=== PATIENT | female | born 1970 | race Caucasian/White ===

== ENCOUNTER 2020-07-30 12:33 | Outpatient (CLI) | payer OTHER, SELFPAY ==
--- NOTE | 2020-07-30 12:48 | MR_ITS ---
WS: [id number] Exam: MR shoulder RT wo/w con [id number] Date/Time of Exam: 07/30/2020 12:49 PM Reason For Exam: RIGHT SHOULDER PAIN S/P INJURY The right shoulder is evaluated in the axial, coronal and sagittal planes with multiple imaging seque nces both before and following uneventful intra-articular administration of gadolinium. The tendons of the rotator cuff are intact. The long head biceps tendon is seated in the bicipital gr oove. The biceps anchor is intact. No sign of labral tear. There is arthrosis and inflammation at the AC joint. There may be mild impingement at the musculotendinous junction of the supraspinatus muscle . Remaining osseous structures demonstrate normal bone marrow signal. MR/MR shoulder RT wo/w con [id number] IMPRESSION: 1. The rotator cuff is intact. 2. No sign of labral tear. 3. Arthrosis and inflammation at the AC joint. There may be mild impingement ho wever this should be correlated with clinical symptomatology.
--- NOTE | 2020-07-30 12:52 | IR_ITS ---
WS: [id number] Exam: IR arthrogram shoulderRT [id number] Date/Time of Exam: 07/30/2020 12:53 PM Reason For Exam: RIGHT SHOULDER PAIN The procedure and potential complications were explained to the patient in detail. Written consent wa s obtained. The right shoulder was prepped and draped in a sterile fashion. Soft tissues are anesthetized with se veral cc of 1% Xylocaine. A 22-gauge spinal needle was placed into the glenohumeral joint under fluor oscopic visualization. Several cc of nonionic contrast were injected to confirm needle position in th e joint compartment. 13 cc of a solution consisting of the 0.5 mL of gadolinium mixed with 100 mL of sterile saline were injected into the glenohumeral joint. The patient tolerated the injection procedu re without incident.
[2020-07-30] MEDS: iohexol 240 mg/mL 50 mL Btl INTRA-ARTI (14:06)
== END 2020-07-30 12:34 | disposition home or self-care (01) ==
LOC: RADWPI 12:41
PROVIDERS: PCP Family Medicine; Visit Provider Orthopaedic Surgery Sports Medicine
DX: M19.011 Primary osteoarthritis, right shoulder (principal)
CPT/HCPCS: 23350; 73223; 77002; Q9966

== ENCOUNTER 2023-08-17 08:27 | Emergency (ER) | payer BC, SELFPAY ==
[2023-08-17 08:35] VITALS: BP 129/91; PULSE 88; RESP 18; TEMP 36.6; O2SAT 98; BMI 23.3
--- NOTE | 2023-08-17 08:52 | XR_ITS ---
WS: [id number] Exam: XR chest 1V portable [id number] Date/Time of Exam: 08/17/2023 8:53 AM Reason For Exam: dyspnea/cough No priors. The lungs are fully inflated and clear. Normal cardiomediastinal silhouette and regional bony element s. No pleural effusions. IMPRESSION: 1. Negative chest.
--- NOTE | 2023-08-17 09:00 | W.ED.WEAKNES ---
HPI - Weakness General: Chief complaint: Weakness Stated complaint: dizziness, sweating Time Seen by Provider: 08/17/23 08:28 Source: patient Mode of arrival: ambulatory History of Present Illness: 52-year-old female comes in complaining of weakness mild shortness of breath and cough generalized aches and pain. She has chronic hip knee pain its gotten significantly worse last few days. She also noticed cramping in her legs that wakes her up at night and she tried drinking more fluids but is not necessarily helped. She has not had any diarrhea. MD Complaint: generalized weakness Onset (ago): minute(s) Location: generalized Relieving factors: none Exacerbating factors: none Associated symptoms: Reports chills, decreased appetite and myalgias; Denies chest pain, confusion, melena, diaphoresis, dysuria, easy bruising, fever(s), headache(s), nausea, rash, short of breath, syncope or vomiting Review of Systems Const: Reports: chills and malaise; Denies: fever(s) or diaphoresis Card: Denies: chest pain or syncope Resp: Reports: dyspnea and non-productive cough GI: Denies: nausea, vomiting or melena : Denies: dysuria Musc: Reports: extremity pain; Denies: neck pain or back pain Skin/Breast: Denies: rash Neuro: Denies: headache(s) or confusion Chris/Lymph: Denies: easy bruising PFSH ED PFSH: Medical History Lumbago with sciatica Headache after cough Tick bite of elbow Social History Smoking and tobacco/nicotine status: never used tobacco/nicotine Second hand smoke exposure: No Alcohol intake: never Substance/Drug Use: never Lives independently: Yes Physical Exam Const: COMMON NORMALS: no acute distress GENERAL APPEARANCE: cooperative and comfortable ORIENTATION/CONSCIOUSNESS: Yes awake, Yes oriented to person, Yes oriented to place and Yes oriented to time HENMT: COMMON NORMALS: normocephalic, atraumatic and hearing grossly normal bilaterally HEAD & SCALP: normocephalic and atraumatic Resp: COMMON NORMALS: normal respiratory effort, No retractions, No use of accessory muscles and clear to auscultation bilaterally AUSCULTATION: clear to auscultation bilaterally Cardio: COMMON NORMALS: regular rate, regular rhythm and No murmurs present (Cardio) RATE: regular rate RHYTHM: regular rhythm GI: COMMON NORMALS: Soft to palpation and No hepatosplenomegaly present AUSCULTATION: Yes normoactive bowel sounds PALPATION: Yes Soft to palpation, No Tenderness to palpation present (GI), No Guarding due to palpation present (GI) and Yes No hepatosplenomegaly present Extremity: COMMON NORMALS: normal to inspection, capillary refill normal, no clubbing, cyanosis or edema, no calf tenderness and no pedal edema Neuro: SENSORIUM/ORIENTATION: Yes oriented to person, Yes oriented to place and Yes oriented to time Skin: COMMON NORMALS: no rashes or lesions noted GENERAL SKIN EXAM: no rashes or lesions noted Course Vital Signs: Vital signs: Vital Signs Temperature 97.8 F 08/17/23 08:35 Pulse Rate 71 08/17/23 12:31 Respiratory Rate 18 08/17/23 08:35 Blood Pressure 131/89 08/17/23 12:31 Pulse Oximetry 96 08/17/23 12:31 Oxygen Delivery Me thod Room Air 08/17/23 12:31 MDM - Weakness Medical Decision Making Chest x-ray was negative patient does have COVID. I think that is the cause of her increased joint ache and pain. Give her some Celebrex also give her ropinirole to trial for nighttime leg cramping. Incidental finding of hematuria today which we did a CT for shows a right renal mass that should be worked up with an MRI as an outpatient discussed with the patient and encouraged her to follow-up with her primary care doctor. Medical Records I reviewed the patient's medical records. Lab Data I reviewed the patient's lab results. 08/17/23 09:24 08/17/23 09:24 Laboratory Results WBC 6.57 10^3/uL (3.29-11.43) 08/17/23 09:24 RBC 4.48 10^6/uL (3.85-5.65) 08/17/23 09:24 Hgb 13.60 g/dL (11.27-16.99) 08/17/23 09:24 Hct 41.6 % (36-47) 08/17/23 09:24 MCV 92.9 fl (85-98) 08/17/23 09:24 MCH 30.4 pg (27-33) 08/17/23 09:24 MCHC 32.7 g/dL (30-55) 08/17/23 09:24 RDW 12.9 % (12.1-15.1) 08/17/23 09:24 Plt Count 193 10^3/cmm (157-399) 08/17/23 09:24 MPV 9.8 fL (7.4-10.4) 08/17/23 09:24 Neut % (Auto) 65.1 % 08/17/23 09:24 Lymph % (Auto) 22.8 % 08/17/23 09:24 [place] % (Auto) 11.1 % 08/17/23 09:24 Eos % (Auto) 0.2 % 08/17/23 09:24 Baso % (Auto) 0.5 % 08/17/23 09:24 Neut # (Auto) 4.28 10^3/uL (1.8-7.7) 08/17/23 09:24 Lymph # (Auto) 1.5 10^3/uL (0.8-4.8) 08/17/23 09:24 [place] # (Auto) 0.7 10^3/uL (0.2-0.9) 08/17/23 09:24 Eos # (Auto) 0.0 10^3/uL (0.0-0.8) 08/17/23 09:24 Baso # (Auto) 0.0 10^3/uL (0.0-0.1) 08/17/23 09:24 Nucleated RBC % (auto) 0 % 08/17/23 09:24 Nucleated RBCs # 0.0 /100WBC 08/17/23 09:24 Sodium 135 mmol/L (136-145) L 08/17/23 09:24 Potassium 3.7 mmol/L (3.5-5.1) 08/17/23 09:24 Chloride 103 mmol/L (98-107) 08/17/23 09:24 Carbon Dioxide 21 mmol/L (22-29) L 08/17/23 09:24 Anion Gap 14.7 (5-19) 08/17/23 09:24 BUN 11 mg/dL (6-20) 08/17/23 09:24 Creatinine 0.8 mg/dL (0.5-0.9) 08/17/23 09:24 GFR Calculation 74.7 mL/min (90-130) L 08/17/23 09:24 Glucose 138 mg/dL (65-115) H 08/17/23 09:24 Calculated Osmolality 282 mOsm/kg (285-295) L 08/17/23 09:24 Lactic Acid 1.5 mmol/L (0.5-2.2) 08/17/23 09:24 Calcium 8.9 mg/dL (8.5-10.5) 08/17/23 09:24 Total Bilirubin 0.2 mg/dL (0.15-1.2) 08/17/23 09:24 AST 18 U/L (0-32) 08/17/23 09:24 ALT 10 U/L (0-33) 08/17/23 09:24 Alkaline Phosphatase 73 U/L (35-105) 08/17/23 09:24 Total Protein 6.8 g/dL (6.6-8.7) 08/17/23 09:24 Albumin 3.7 g/dL (3.5-5.2) 08/17/23 09:24 Globulin 3.1 g/dL (1.3-4.6) 08/17/23 09:24 Urine Color Dark yellow (Yellow) 08/17/23 10:03 Urine Appearance Clear (CLEAR) 08/17/23 10:03 Urine pH 5 (5-7) 08/17/23 10:03 Ur Specific Ira 1.020 (1.005-1.030) 08/17/23 10:03 Urine Protein Neg (Negative) 08/17/23 10:03 Urine Glucose (UA) Norm (Normal) 08/17/23 10:03 Urine Ketones Negative (Negative) 08/17/23 10:03 Urine Blood 3+ (Negative) H 08/17/23 10:03 Urine Nitrate Negative (Negative) 08/17/23 10:03 Urine Bilirubin Neg (Negative) 08/17/23 10:03 Urine Urobilinogen Norm mg/dL (Negative) 08/17/23 10:03 Ur Leukocyte Esterase Negative (Negative) 08/17/23 10:03 Urine RBC 5-10 /hpf (0-2) H 08/17/23 10:03 Urine WBC 0-4 /hpf (0-5) H 08/17/23 10:03 Ur Squamous Epith Cells 0-4 /hpf (0-5) H 08/17/23 10:03 Amorphous Sediment Trace /hpf 08/17/23 10:03 Urine Bacteria 1+ /hpf (NONE) H 08/17/23 10:03 Hyaline Casts 15-25 /lpf H 08/17/23 10:03 Fine Granular Casts 0-4 /lpf H 08/17/23 10:03 Urine Mucus 2+ /hpf 08/17/23 10:03 Coronavirus 229E (PCR) Not detected (NOT DETECT) 08/17/23 09:04 Influenza Type A Ag negative (Negative) 08/17/23 09:04 Influenza Type B Ag negative (Negative) 08/17/23 09:04 SARS-CoV-2 (PCR) Detected (NOT DETECT) A 08/17/23 09:04 All radiology interpretation(s) finalized by discharge Discharge Plan Discharge Patient Disposition: Home Clinical Impression: COVID-19, Lumbago with sciatica, Mass of right kidney Condition: Stable Prescriptions: New Paxlovid 300 mg (150 mg x 2)-100 mg tablets,dose pack See Rx Instructions .ROUTE .COMPLEX Qty: 30 0RF Rx Instructions: orally per package directions Celebrex 200 mg capsule 200 mg PO BID Qty: 30 0RF ropinirole 0.5 mg tablet 0.5 mg PO .qhs Qty: 30 0RF No Action alprazolam 0.25 mg tablet 0.25 mg PO TID PRN (Reason: anxiety) Qty: 90 5RF cyclobenzaprine 10 mg tablet 10 mg PO TID PRN (Reason: muscle spasm) Qty: 60 1RF Discharge Orders: Discharge ED (Routine); Ordered 08/17/23 Ordered By: Presley Valiente Referrals: Severino Rosales, [Primary Care Provider] - Discharge Diet: Usual diet Discharge Activity: Increase activity as tolerated Patient Instructions: Opioid Safety, Pain Management Activity Restrictions/Additional Instructions: Thank you for choosing [facility] for your healthcare needs today. Please realize this is an emergency room and that we are providing you with a medical screening exam and this may not be complete and all inclusive of all the testing and or work up that you may need to determine your ailment or severity of your illness. It is very important that you follow up as instructed or that you return to the Emergency Department should you have concerns or if your condition changes or worsens in any way. You were seen today with complaints of generalized aches and pains. This is likely coming from COVID-19 which she tested positive for. Your chest x-ray looked okay. You did have a small amount of blood in your urine however no CT showed a right renal mass you will need further evaluation of this case management make arrangements for an MRI as an outpatient. He should follow-up with Dr. Acosta concerning this. We gave you prescription for Paxlovid to take 1 twice a day for 5 days this will suppress the COVID but will not completely cure it. I also gave you Celebrex to use 1 pill twice daily as needed for aches and pains this is generally relatively easy on the stomach. I also gave you ropinirole to use at night for leg cramping. 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
[2023-08-17 09:35] LABS: Basophils % 0.5 %; Eosinophils % 0.2 %; Hematocrit 41.6 % (36-47); Lymphocytes # 1.5 10^3/uL (0.8-4.8); Lymphocytes % 22.8 %; Mean Corpuscular HGB Conc 32.7 g/dL (30-55); Mean Corpuscular Hemoglobin 30.4 pg (27-33); Mean Corpuscular Volume 92.9 fl (85-98); Mean Platelet Volume 9.8 fL (7.4-10.4); Monocytes # 0.7 10^3/uL (0.2-0.9); Monocytes % 11.1 %; Neutrophils # 4.28 10^3/uL (1.8-7.7); Neutrophils % 65.1 %; Nucleated Red Blood Cells % 0 %; Platelet Count 193 10^3/cmm (157-399); Red Blood Count 4.48 10^6/uL (3.85-5.65); Red Cell Distribution Width 12.9 % (12.1-15.1); White Blood Count 6.57 10^3/uL (3.29-11.43)
[2023-08-17 09:48] LABS: Lactic Sepsis W/Reflex 1.5 mmol/L (0.5-2.2)
[2023-08-17 09:49] LABS: Alanine Aminotransferase 10 U/L (0-33); Albumin Level 3.7 g/dL (3.5-5.2); Alkaline Phosphatase 73 U/L (35-105); Anion Gap 14.7 (5-19); Aspartate Amino Transferase 18 U/L (0-32); Blood Urea Nitrogen 11 mg/dL (6-20); Calcium 8.9 mg/dL (8.5-10.5); Carbon Dioxide 21 mmol/L (22-29); Chloride 103 mmol/L (98-107); Globulin 3.1 g/dL (1.3-4.6); Glomerular Filtration Rate 74.7 mL/min (90-130); Glucose 138 mg/dL (65-115); Osmolality Calculated 282 mOsm/kg (285-295); Potassium 3.7 mmol/L (3.5-5.1); Sodium 135 mmol/L (136-145); Total Bilirubin 0.2 mg/dL (0.15-1.2); Total Protein 6.8 g/dL (6.6-8.7)
[2023-08-17 10:16] LABS: Influenza A by IFA negative (Negative); Influenza B by IFA negative (Negative)
[2023-08-17 10:23] LABS: Bilirubin Urine Neg (Negative); Blood Urine 3+ (Negative); Glucose Urine UA Norm (Normal); Ketones Urine Negative (Negative); Leukocyte Esterase Urine Negative (Negative); Nitrate Urine Negative (Negative); Protein Urine Neg (Negative); Urine Appearance Clear (CLEAR); Urine Color Dark Yellow (Yellow); Urobilinogen Urine Norm (Negative); pH Urine 5 (5-7)
[2023-08-17 10:24] LABS: Add Urine Microscopic? YES
[2023-08-17 10:34] LABS: Add Urine Culture? No; Amorphous Sediment Urine TRACE /hpf; Bacteria Urine 1+ /hpf; Fine Granular Casts Urine 0-4 /lpf; Hyaline Casts Urine 15-25 /lpf; Mucus Urine 2+ /hpf; Squamous Epithelial Cell Urine 0-4 /hpf (0-5); WBC Urine 0-4 /hpf (0-5)
--- NOTE | 2023-08-17 10:56 | CT_ITS ---
WS: [id number] CT ABDOMEN AND PELVIS NONCONTRAST HISTORY: Abdominal pain TECHNIQUE: Imaging performed through the abdomen and pelvis. Coronal and sagittal reformats are submi tted. All CT scans at [facility] use at least one of these dose optimization techniques: auto mated exposure control; mA and/or kV adjustment per patient size (includes targeted exams where dose is matched to clinical indication); or iterative reconstruction. DLP: 359.86 mGy.cm COMPARISON: None available. Lower thorax: Mild dependent changes at the lung bases. Heart is normal size. Small hiatal hernia. Liver: Normal size liver. No mass or bile duct dilatation. Gallbladder: Normal gallbladder. No pericholecystic fluid or cholelithiasis. No gallbladder wall thic kening. Pancreas: Normal size and attenuation. Normal pancreatic duct. No pancreatitis or mass. Spleen: Normal size spleen with granulomata. Adrenal glands: Well-circumscribed low-attenuation mass RIGHT adrenal gland measures 2.9 x 2.3 cm. Ho unsfield units are slightly elevated. LEFT adrenal gland is negative. Right kidney: Normal size kidney with no mass or hydronephrosis. Left kidney: Normal size kidney with no mass or hydronephrosis. Aorta: Mild atherosclerosis abdominal aorta with no aneurysm. No free fluid, intraperitoneal air or significant lymphadenopathy. GI tract: Normal noncontrast imaging of the stomach, small bowel and colon. No obstruction or wall th ickening. Normal appendix. Abdominal wall: Negative. No hernia. Pelvis: Uterus and ovaries are normal position. No free fluid or adenopathy. Osseous structures: Unremarkable. IMPRESSION: 1. No renal obstruction or calcification. 2. Normal appendix. 3. No GI tract obstruction. 4. RIGHT adrenal mass. Hounsfield units are elevated. Cannot confirm adenoma. Consider outpatient re nal mass CT or MRI protocol.
[2023-08-17 11:44] LABS: Adenovirus Not Detected (NOT DETECT); Chlamydia Pneumoniae Not Detected (NOT DETECT); Coronavirus 229E,HKU1,NL63,OC4 Not Detected (NOT DETECT); Human Metapneumovirus Not Detected (NOT DETECT); Human Rhinovirus/Enterovirus Not Detected (NOT DETECT); Influenza A Not Detected (NOT DETECT); Influenza A H1 Not Detected (NOT DETECT); Influenza A H1-2009 Not Detected (NOT DETECT); Influenza A H3 Not Detected (NOT DETECT); Influenza B Not Detected (NOT DETECT); Mycoplasma Pneumoniae Not Detected (NOT DETECT); Parainfluenza Virus Type 1 Not Detected (NOT DETECT); Parainfluenza Virus Type 2 Not Detected (NOT DETECT); Parainfluenza Virus Type 3 Not Detected (NOT DETECT); Parainfluenza Virus Type 4 Not Detected (NOT DETECT); Respiratory Syncytial Virus A Not Detected (NOT DETECT); Respiratory Syncytial Virus B Not Detected (NOT DETECT)
[2023-08-17 11:58] LABS: SARS-COV-2 Detected (NOT DETECT)
[2023-08-17 12:31] VITALS: BP 131/89; PULSE 71; O2SAT 96
--- NOTE | 2023-08-24 08:38 | DCPLANNER ---
outpatient request sent to centralized scheduling 08/24/23 for a MRI abd [id number]
== END 2023-08-17 12:38 | disposition home or self-care (01) ==
PROVIDERS: Emergency Provider Family Medicine; PCP Family Medicine
DX: U07.1 COVID-19 (principal); M54.40 Lumbago with sciatica, unspecified side; N28.89 Other specified disorders of kidney and ureter
CPT/HCPCS: 36415; 71045; 74176; 80053; 81001; 83605; 85025; 87040; 87635; 87804; 99284

== ENCOUNTER → 2023-12-01 09:12 | Outpatient (BNVA) | payer BC, SELFPAY | PROVIDERS: PCP Family Medicine; Visit Provider Family Medicine | DX: Z00.00 Encounter for general adult medical examination without abnormal findings (principal); Z13.6 Encounter for screening for cardiovascular disorders | CPT/HCPCS: 80053; 80061 ==

== ENCOUNTER 2024-01-25 10:58 | Outpatient (CLI) | payer BC, SELFPAY ==
--- NOTE | 2024-01-25 11:06 | MR_ITS ---
WS: [id number] MRI ADRENAL GLANDS WITH AND WITHOUT CONTRAST. COMPARISON: CT 08/17/2023 Multiplanar, multisequence imaging is performed with and without contrast. MultiHance 13 mL IV. Reidentified is a mass involving the RIGHT adrenal gland that was described on a prior CT. Mass is he terogeneous measuring 2.5 x 2.0 cm. On the out of phase sequence there is partial loss of signal sugg esting there is a component of an adenoma. There is not a complete washout of signal. There is an are a of increased density in the more posterior RIGHT adrenal gland which does enhance. The lipid compon ent does not enhance. The posterior aspect of the RIGHT adrenal gland does enhance on the postcontras t imaging without significant washout. The enhancing component is 1.5 x 2.0 cm. The LEFT adrenal gland is normal. Liver is enlarged extending over a length of 18 cm. Normal portal v ein. Normal kidneys. Normal spleen. Visualized gallbladder is normal. Visualized pancreas is normal. MR/MR adrenals wo/w con [id number] IMPRESSION: 1. RIGHT adrenal mass is indeterminate. There are components of benign adenoma but is also an enhancing component in the RIGHT adrenal gland. Differential in cludes collision tumor, pheochromocytoma, metastasis and adrenal cortical carci noma and lipid poor adenoma. Due to the small size of the enhancing component r ecommend follow-up MRI adrenal gland protocol in 6 months. Stable size since . 2. Mild hepatomegaly.
[2024-01-25] MEDS: gadobenate dimeglumine 20 mL vial IV (11:48)
== END 2024-01-25 10:59 | disposition home or self-care (01) ==
PROVIDERS: PCP Family Medicine; Visit Provider Family Medicine
DX: E27.8 Other specified disorders of adrenal gland (principal)
CPT/HCPCS: 74183; A9577

== ENCOUNTER 2024-01-31 11:22 | Outpatient (CLI) | payer BC, SELFPAY ==
--- NOTE | 2024-01-31 11:24 | XR_ITS ---
WS: [id number] XR hip BI 3-4V wo/w pel [id number] REASON FOR EXAM: M19.90 - Unspecified osteoarthritis, unspecified site FINDINGS: RIGHT HIP: No acute fracture or focal bone lesion. Mild to moderate narrowing of the joint space. Mild subchondral sclerosis and osteophytosis of the acetabulum. Normal femoral head and neck. No soft tissue abnormality. LEFT HIP: No acute fracture or focal bone lesion. Mild to moderate narrowing of the joint space. Mild subchondral sclerosis and osteophytosis of the acetabulum. Normal femoral head-neck. No soft tissue abnormality. XR/XR hip BI 3-4V wo/w pel [id number] IMPRESSION: Symmetric mild to moderate osteoarthritis of the hip joints.
== END 2024-01-31 11:23 | disposition home or self-care (01) ==
LOC: RAD 11:23
PROVIDERS: PCP Family Medicine; Visit Provider Family Medicine
DX: M16.0 Bilateral primary osteoarthritis of hip (principal)
CPT/HCPCS: 73521; 73522

== ENCOUNTER 2024-02-15 09:57 | Outpatient (CLI) | payer BC, SELFPAY ==
--- NOTE | 2024-02-15 10:21 | XRR_ITS ---
PROCEDURE INFORMATION: Exam: XR Lumbosacral Spine Exam date and time: 02/15/2024 10:45 AM Age: 53 years old Clinical indication: Low back pain TECHNIQUE: Imaging protocol: Radiologic exam of the lumbosacral spine. Views: 2 or 3 views. COMPARISON: CR XR hip BI 3-4V wo/w pel [id number] 01/31/2024 11:48 AM FINDINGS: Bones/joints: Well maintained disc spaces. Mild marginal spurring L2 through L5.. No acute fracture. Normal alignment. Soft tissues: Unremarkable. XR/XR lumbar spine 2-3V* [id number] IMPRESSION: No acute findings.
--- NOTE | 2024-02-15 10:21 | XRR_ITS ---
PROCEDURE INFORMATION: Exam: XR Cervical Spine Exam date and time: 02/15/2024 10:45 AM Age: 53 years old Clinical indication: Neck pain; Additional info: Back pain TECHNIQUE: Imaging protocol: Radiologic exam of the cervical spine. Views: 2 or 3 views. COMPARISON: CR XR thoracic spine 2V [id number] 02/15/2024 10:45 AM FINDINGS: Bones/joints: Straightening of the normal cervical lordosis. Disc space narrowing and spurring C5 through C7. Minimal anterolisthesis of C4 on C5. Soft tissues: Unremarkable. XR/XR cervical spine 3V* [id number] IMPRESSION: No acute findings.
--- NOTE | 2024-02-15 10:21 | XRR_ITS ---
PROCEDURE INFORMATION: Exam: XR Thoracic Spine Exam date and time: 02/15/2024 10:45 AM Age: 53 years old Clinical indication: Pain in thoracic spine; Additional info: Back pain TECHNIQUE: Imaging protocol: Radiologic exam of the thoracic spine. Views: 3 views. COMPARISON: CR XR cervical spine 3V* [id number] 02/15/2024 10:45 AM FINDINGS: Bones/joints: Normal. No acute fracture. Normal alignment. Soft tissues: Unremarkable. XR/XR thoracic spine 2V [id number] IMPRESSION: No acute findings.
== END 2024-02-15 09:58 | disposition home or self-care (01) ==
PROVIDERS: PCP Family Medicine; Visit Provider Family Medicine
DX: M48.02 Spinal stenosis, cervical region (principal); M25.78 Osteophyte, vertebrae
CPT/HCPCS: 72040; 72070; 72100

== ENCOUNTER 2024-02-16 07:13 | Outpatient (CLI) | payer BC, SELFPAY ==
[2024-02-16 09:11] LABS: Cortisol Random 8.22 ug/dL (2.47-19.5)
== END 2024-02-16 07:14 | disposition home or self-care (01) ==
PROVIDERS: PCP Family Medicine; Visit Provider Nurse Practitioner Family
DX: E27.8 Other specified disorders of adrenal gland (principal)
CPT/HCPCS: 36415; 82533; 83835

== ENCOUNTER 2024-02-17 06:59 | Outpatient (CLI) | payer BC, SELFPAY ==
[2024-02-17 07:50] LABS: Cortisol Random 1.42 ug/dL (2.47-19.5)
== END 2024-02-17 07:00 | disposition home or self-care (01) ==
PROVIDERS: PCP Family Medicine; Visit Provider Nurse Practitioner Family
DX: E27.8 Other specified disorders of adrenal gland (principal)
CPT/HCPCS: 36415; 82533

== ENCOUNTER → 2024-02-23 14:39 | Outpatient (BNVA) | payer BC, SELFPAY | PROVIDERS: PCP Family Medicine; Visit Provider Family Medicine | DX: R31.9 Hematuria, unspecified (principal); M25.551 Pain in right hip; M19.90 Unspecified osteoarthritis, unspecified site; E27.8 Other specified disorders of adrenal gland; M62.838 Other muscle spasm | CPT/HCPCS: 81000 ==

== ENCOUNTER → 2024-04-03 10:15 | Outpatient (BNVA) | payer BC, SELFPAY | PROVIDERS: PCP Family Medicine; Visit Provider Student in an Organized Health Care Education/Training Program | DX: M25.551 Pain in right hip (principal); M70.61 Trochanteric bursitis, right hip | CPT/HCPCS: 73502 ==

== ENCOUNTER → 2024-07-19 14:37 | Outpatient (BNVA) | payer BC, SELFPAY | PROVIDERS: PCP Family Medicine; Visit Provider Orthopaedic Surgery | DX: M54.9 Dorsalgia, unspecified (principal); M25.551 Pain in right hip; M48.062 Spinal stenosis, lumbar region with neurogenic claudication | CPT/HCPCS: 72110 ==

== ENCOUNTER 2024-07-31 13:30 | Outpatient (CLI) | payer BC, SELFPAY ==
--- NOTE | 2024-07-31 13:45 | MR_ITS ---
WS: [id number] MRI LUMBAR SPINE NONCONTRAST TECHNIQUE: Sagittal T1, T2 and STIR imaging. Axial T1 and T2 imaging. CLINICAL INFORMATION: low back pain COMPARISON: None. FINDINGS: Mild lumbar curve. No acute compression. Disc bulging worse at L4-5 with a small annular tear. 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 Small central disc protrusion C5-6 with slight indentation of the cervical cord. This can be further evaluated cervical spine MRI. Suggestion of small amount of myelomalacia in the cervical cord. L1-L2: Mild facet arthropathy. Spinal canal and foramen are patent. L2-L3:Mild annular bulging with slight narrowing of the RIGHT subarticular recess. Slight effacement of the ventral thecal sac. Mild facet arthropathy. Mild LEFT foraminal narrowing. L3-L4: Mild annular bulging. Slight impingement on the RIGHT greater than LEFT subarticular recess. Mild facet arthropathy. Mild RIGHT foraminal narrowing. L4-L5: Annular bulging L4-5 with a shallow central protrusion with an annular fissure. Mild central c anal stenosis. Impingement traversing L5 nerve roots bilaterally. Foramen are patent. L5-S1: Mild annular bulging. Slight effacement of thecal sac. Slight impingement of traversing S1 ner ve roots bilaterally. Mild facet arthropathy. Foramen are patent. Visualized pelvic bony structures: Normal. Paravertebral soft tissues: Normal. Partially visualized splenomegaly. Liver measures 18.7 cm [id number] on the client resource specialist imaging. MR/MR lumbar spine wo con* [id number] IMPRESSION: 1. Mild lumbar curve. No acute compression. 2. Disc bulging worse at L4-5 with a shallow central protrusion and annular te ar. Mild central canal stenosis with impingement traversing L5 nerve roots bila terally. 3. Annular bulging L3-4 impinges the traversing RIGHT L4 nerve root. 4. Narrowing of the RIGHT L2-3 subarticular recess. 5. Mild annular bulge L5-S1 with slight contact of the traversing S1 nerve maria d ts LEFT greater than RIGHT. 6. Small central protrusion in the cervical spine on client resource specialist imaging with slight indentation of the cervical cord with suggestion of myelomalacia. This can be further evaluated with cervical spine MRI. 7. Hepatomegaly.
== END 2024-07-31 13:31 | disposition home or self-care (01) ==
LOC: RAD 13:31
PROVIDERS: PCP Family Medicine; Visit Provider Orthopaedic Surgery
DX: M51.360 Other intervertebral disc degeneration, lumbar region with discogenic back pain only (principal); M54.16 Radiculopathy, lumbar region; M50.20 Other cervical disc displacement, unspecified cervical region; R16.0 Hepatomegaly, not elsewhere classified
CPT/HCPCS: 72148

== ENCOUNTER 2025-01-23 15:38 | Outpatient (CLI) | payer BC, SELFPAY ==
--- NOTE | 2025-01-23 16:07 | CT_ITS ---
WS: [id number] CT adrenals with and without contrast. HISTORY: RIGHT ADRENAL MASS Noncontrast 2 mm imaging is performed through the abdomen with attention to the adrenal glands. Additional 1 minute and 15 minute delayed images are then performed through the adrenal glands. CONTRAST: Omnipaque 350; 95 mL IV. DLP: 491.[address] scans at [facility] use at least one of these dose optimization techniques: automated exposure control; mA and/or kV adjustment per patient size (includes targeted exams where dose is matched to clinical indication); or iterative reconstruction. COMPARISON: 08/17/2023 Lower thorax: 4 mm noncalcified nodule anterior RIGHT lower lung field, RIGHT middle lobe. This was also noted on the prior study without increase in size. Micronodule subpleural LEFT lower lobe. Heart is normal size. Small hiatal hernia. Tricuspid regurgitation into the hepatic veins. Liver: Normal. No intrahepatic dilatation. Gallbladder: Normal. Pancreas: Normal. Spleen: Normal size with granulomata. ADRENAL GLANDS. RIGHT: Heterogeneous mass RIGHT adrenal gland measures 2.5 x 2.1 cm. Areas of this adrenal mass are of low signal suggesting macroscopic fat. There are additional areas within the adrenal gland of increased density. There is enhancement but variable. Absolute washout value is 35%. Relative washout value is 28%. Neither of these values confirm this is a benign adenoma. LEFT: Normal. Right kidney: Normal. Left kidney: Normal. Aorta: Atherosclerosis aorta. No aneurysm. Narrowing with stenosis involving the proximal celiac axis. Additional high-grade stenosis involving the SMA. Stenosis extends over several centimeters. GI tract: No obstruction. No adenopathy or free fluid. Abdominal wall: Ventral abdominal wall hernia contains fat only. Visualized osseous structures: Unremarkable. CT/CT abdomen wo/w con [id number] IMPRESSION: 1. Heterogeneous mass with variable enhancement RIGHT adrenal gland measures 2 .5 x 2.1 cm. Absolute and relative washout values cannot confirm this is a suzie gn adenoma. This may potentially be a lipid poor adenoma. Additional etiology c onsider are early adrenal cortical carcinoma and metastasis. Not likely pheochr omocytoma as the mass is not highly vascular. Recommend continued close imaging follow-up. Consider follow-up MR or CT evaluation in 3 months. If adrenal mass continues to increase in size surgical excision may be required. 2. 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 No ischemic changes within the GI tract evident. 3. Fat-containing umbilical hernia. 4. 4 mm noncalcified nodule anterior RIGHT middle lobe.
[2025-01-23] MEDS: iohexol 350 mg/mL 500 mL Btl (per mL) IV (17:00)
== END 2025-01-23 15:39 | disposition home or self-care (01) ==
LOC: RAD 15:39
PROVIDERS: PCP Family Medicine; Visit Provider Urology
DX: E27.8 Other specified disorders of adrenal gland (principal); K55.1 Chronic vascular disorders of intestine; I77.4 Celiac artery compression syndrome; K42.9 Umbilical hernia without obstruction or gangrene; R91.1 Solitary pulmonary nodule; K44.9 Diaphragmatic hernia without obstruction or gangrene; I07.1 Rheumatic tricuspid insufficiency; D73.89 Other diseases of spleen; I70.0 Atherosclerosis of aorta
CPT/HCPCS: 74170

== ENCOUNTER 2025-01-29 07:12 | Outpatient (CLI) | payer BC, SELFPAY ==
[2025-01-29 08:02] LABS: Anion Gap 17.0 (5-19); Blood Urea Nitrogen 12 mg/dL (6-20); Calcium 9.4 mg/dL (8.5-10.5); Carbon Dioxide 24 mmol/L (22-29); Chloride 103 mmol/L (98-107); Glucose 92 mg/dL (65-115); Osmolality Calculated 289 mOsm/kg (285-295); Potassium 4.0 mmol/L (3.5-5.1); Sodium 140 mmol/L (136-145)
[2025-02-03 09:09] LABS: Metanephrine Total Free 121 pg/mL (<=205)
== END 2025-01-29 07:13 | disposition home or self-care (01) ==
PROVIDERS: PCP Family Medicine; Visit Provider Urology
DX: E27.8 Other specified disorders of adrenal gland (principal)
CPT/HCPCS: 36415; 80048; 80299; 83835

== ENCOUNTER 2025-01-30 07:12 | Outpatient (CLI) | payer BC, SELFPAY ==
[2025-01-30 08:15] LABS: Anion Gap 17.1 (5-19); Blood Urea Nitrogen 13 mg/dL (6-20); Calcium 9.4 mg/dL (8.5-10.5); Carbon Dioxide 24 mmol/L (22-29); Chloride 104 mmol/L (98-107); Glucose 87 mg/dL (65-115); Osmolality Calculated 291 mOsm/kg (285-295); Potassium 4.1 mmol/L (3.5-5.1); Sodium 141 mmol/L (136-145)
[2025-02-03 09:09] LABS: Metanephrine Total Free 128 pg/mL (<=205)
== END 2025-01-30 07:13 | disposition home or self-care (01) ==
PROVIDERS: PCP Family Medicine; Visit Provider Urology
DX: E27.3 Drug-induced adrenocortical insufficiency (principal)
CPT/HCPCS: 36415; 80048; 80299; 83835

== ENCOUNTER → 2025-03-05 12:06 | Outpatient (BNVA) | payer BC, SELFPAY | PROVIDERS: PCP Family Medicine; Visit Provider Orthopaedic Surgery | DX: M54.9 Dorsalgia, unspecified (principal) | CPT/HCPCS: 36415; 80053; 81001; 85025 ==

== ENCOUNTER 2025-03-20 07:31 | Day surgery (SDC) | payer BC, SELFPAY ==
[2025-03-20] VITALS (15 sets, daily range): BP systolic 115–158; BP diastolic 57–99; PULSE 68–94; RESP 12–23; TEMP 36.1–36.6; O2SAT 93–100; BMI 21.6
--- NOTE | 2025-03-20 08:37 | P.ANESASSM_ITS ---
Pre-Anesthetic Assessment Height/Weight: Height 1.65 m Weight 58.967 kg Temp Pulse Resp BP Pulse Ox O2 Del Method 97.8 F 78 16 135/77 97 Room Air 03/20/25 08:05 03/20/25 08:05 03/20/25 08:05 03/20/25 08:05 03/20/25 08:05 03/20/25 08:05 Preop Diagnosis: Lumbar stenosis with neurogenic claudication Operation Date: 03/20/25 09:05 Proposed Procedures p Lumbar Spine Decompression Lumbar Decompression(Not Applicable) - Shilo Maravilla, DO Familial anesthetic complications: PONV Was Beta Genet taken within 24 hours: N/A Was Clonidine taken within 24 hours: N/A Last intake: Intake Last Liquid Date 03/19/25 Last Liquid Time 19:00 Last Solid Date 03/19/25 Last Solid Time 18:30 Social Tobacco and No alcohol Exam alert, oriented x 3, clear to auscultation bilaterally and regular rate & rhythm Airway Mallampati: Class I Dentition: full Anesthetic Plan ASA status: 2 Anesthesia: General Risk of > 500 ml blood loss (7ml/kg in children): No Medications/Allergies Home Medications ?Medication ?Instructions ?Recorded ?Confirmed ?Last Taken ?Type cyclobenzaprine 10 mg tablet 10 mg PO TID PRN muscle s pasm #60 09/01/23 03/19/25 03/18/25 Rx tabs alprazolam 0.25 mg tablet 0.25 mg PO TID PRN anxiety # 90 tabs 09/17/24 03/19/25 03/20/25 Rx duloxetine 40 mg capsule,delayed 40 mg PO DAILY mood/p ain #30 caps 02/12/25 03/19/25 03/19/25 Rx release hydrocodone 7.5 mg-acetaminophen 1 tab PO TID PRN pain 30 days #90 02/12/25 03/19/25 03/20/25 Rx 325 mg tablet tabs nicotine 14 mg/24 hr daily 1 patch transdermal DAILY n icotine 02/17/25 03/19/25 03/19/25 Rx transdermal patch supplement #7 ea Allergies Allergy/AdvReac Type Severity Reaction Status Date / Time No Known Allergies Allergy Verified 03/19/25 14:01 Current Medications Generic Name Dose Route Start Last Admin Trade Name Freq PRN Reason Stop Dose Admin Sodium Chloride 1,000 mls @ 30 mls/hr 03/20/25 08:00 03/20/25 08:20 Sodium Chloride 0.9% IV 03/21/25 07:59 30 mls/hr .Q24H [facility]OVER Administration PFS Anesthesia Medical History Acute right-sided low back pain with right-sided sciatica Headache after cough Tick bite of elbow Social History Smoking and tobacco/nicotine status: never used tobacco/nicotine Second hand smoke exposure: No Alcohol intake: never Substance/Drug Use: never Lives independently: Yes
[2025-03-20] MEDS: fentaNYL 50 mcg/mL INJ 2mL IVP ×3 (08:43→11:40)
--- NOTE | 2025-03-20 09:20 | W.PM.OPSUD ---
Surgery/Procedure H&P Update DATE OF PROCEDURE: March 20, 2025 DATE H&P PERFORMED: 03/05/25 H&P UPDATE INFORMATION: I have reviewed H&P completed within last 30 days, I have examined patient prior to procedure and No changes to prior documentation PREOP DIAGNOSIS: Lumbar stenosis with neurogenic claudication PLANNED PROCEDURE: Operation Date: 03/20/25 09:05 Proposed Procedures p Lumbar Spine Decompression Lumbar Decompression(Not Applicable) - Shilo Maravilla DO
[2025-03-20] MEDS: ceFAZolin 2,000 mg SDV 2000 MG IVP (09:35)
[2025-03-20] MEDS: lidocaine-epi 1% 20 mL INJ 10 ML INJECTION (10:26)
--- NOTE | 2025-03-20 11:32 | PM.OP ---
Operative Report Date of procedure: March 20, 2025 Pre-op diagnosis: Lumbar stenosis with neurogenic claudication Post-op diagnosis: same Procedure done: 1. L3/4 laminectomy with partial facetectomy 2. L4/5 laminectomy partial facetectomy 3. L5/S1 laminectomy with partial facetectomy Surgeon: Shilo Maravilla DO Estimated blood loss (mL): 25 Procedure: 1. L3/4 laminectomy with partial facetectomy 2. L4/5 laminectomy partial facetectomy 3. L5/S1 laminectomy with partial facetectomy Patient is brought to the operative suite. After undergoing anesthesia they are placed in the prone position. All areas of impingement are well padded. Patient is then prepped and draped in the normal sterile fashion. A skin incision is made over the L3/4 level. This is confirmed under c-arm guidance. A series of dilators are passed and the tubular retractor is docked on the L L3 lamina. A bovie is used to clear the soft tissue off the lamina and the L L3/4 facet joint. A high speed ramana is then used to perform the laminectomy and take down the medial aspect of the L L3/4 facet joint. A kerrison rongeure was then used to take down the remaining lamina and smooth the edge of the laminectomy up to the point where the ligamentum flavum attaches. Attention was then brought to the medial aspect of the facet joint. The remaining medial aspect of the superior and inferior aspect of the facet joint were taken down with the kerrison from the pedicle of L3 to L 4. The facet joint had significant hypertrophy. Attention was then brought to the Ligamentum Flavum. The ligament was taken down from the lamina of L3 to L4 and out medially to the remaining facet joint. The ligament was thick. The dura was then exposed. The dura was in good repair. The L3 nerve was then traced with a curette out the L3/4 foramen and found to be adequately decompressed. The L4 nerve was traced with a curette around the L4 pedicle. The lateral recess was opened with a kerrison helping to further decompress the L4 nerve. Wound is then irrigated copiously with saline and surgiflo is used to stop any bleeding. The tubular retractor is removed skin incision is made over the L4/5 level. This is confirmed under c-arm guidance. A series of dilators are passed and the tubular retractor is docked on the L4 lamina. A bovie is used to clear the soft tissue off the lamina and the L 4/5 facet joint. A high speed ramana is then used to perform the laminectomy and take down the medial aspect of the L 4/5 facet joint. A kerrison rongeure was then used to take down the remaining lamina and smooth the edge of the laminectomy up to the point where the ligamentum flavum attaches. Attention was then brought to the medial aspect of the facet joint. The remaining medial aspect of the superior and inferior aspect of the facet joint were taken down with the kerrison from the pedicle of L4 to L 5. The facet joint had significant hypertrophy. Attention was then brought to the Ligamentum Flavum. The ligament was taken down from the lamina of L4 to L5 and out medially to the remaining facet joint. The ligament was thick. The dura was then exposed. The dura was in good repair. The L4 nerve was then traced with a curette out the L4/5 foramen and found to be adequately decompressed. The L5 nerve was traced with a curette around the L5 pedicle. The lateral recess was opened with a kerrison helping to further decompress the L5 nerve. Wound is then irrigated copiously with saline and surgiflo is used to stop any bleeding. The tubular retractor is removed A skin incision is made over the L5/S1 level. This is confirmed under c-arm guidance. A series of dilators are passed and the tubular retractor is docked on the L5 lamina. A bovie is used to clear the soft tissue off the lamina and the L 5/S1 facet joint. A high speed ramana is then used to perform the laminectomy and take down the medial aspect of the L 5/S1 facet joint. A kerrison rongeure was then used to take down the remaining lamina and smooth the edge of the laminectomy up to the point where the ligamentum flavum attaches. Attention was then brought to the medial aspect of the facet joint. The remaining medial aspect of the superior and inferior aspect of the facet joint were taken down with the kerrison from the pedicle of L5 to S1. The facet joint had significant hypertrophy. Attention was then brought to the Ligamentum Flavum. The ligament was taken down from the lamina of L5 to S1 and out medially to the remaining facet joint. The ligament was thick. The dura was then exposed. The dura was in good repair. The L5 nerve was then traced with a curette out the L5/S1 foramen and found to be adequately decompressed. The S1 nerve was traced with a curette around the S1 pedicle. The lateral recess was opened with a kerrison helping to further decompress the S1 nerve. Wound is then irrigated copiously with saline and surgiflo is used to stop any bleeding. The tubular retractor is removed and the wound is closed with vicryl and monocryl suture. Steri strips were applied. A sterile dressing is then placed. Patient was then placed in the supine position and transferred to the PACU in stable condition.
[2025-03-20] MEDS: HYDROmorphone 1 mg/mL INJ 1ml 0.5 MG IVP ×2 (11:50→12:00)
[2025-03-20] MEDS: HYDROcodone-acetaminophen 10-325 mg Tablet 1 TAB PO (13:14)
--- NOTE | 2025-03-20 13:20 | ANE.PACU2 ---
Inpatient post-anesthesia follow up: Airway intact: Yes Vital signs: Temperature 97.9 F Pulse Rate 71 Respiratory Rate 16 Blood Pressure 131/71 Pulse Oximetry 95 Oxygen Delivery Me thod Room Air Oxygen Flow Rate 3 Fraction of Inspir ed Oxygen Hydration adequate: Yes Nausea and vomiting: No Pain level: 1 Mental status: Baseline
--- NOTE | 2025-03-20 13:30 | SUR.PHASEII ---
13:15 ROM AND SENSATION IN ALL 4 EXTREMITIES.
--- NOTE | 2025-03-20 14:35 | XR_ITS ---
WS: [id number] Lumbar spine, C-arm fluoroscopy views, 03/20/2025 Clinical Data: or pic, decompression Comparison: Lumbar spine, 07/19/2024 Findings: Dr. Maravilla performed a lumbar decompression. XR/XR lumbar spine 1V [id number] Impression: Lumbar decompression.
== END 2025-03-20 13:20 | disposition home or self-care (01) ==
PROVIDERS: PCP Family Medicine; Visit Provider Orthopaedic Surgery
PROC: (CPT 63005; principal; 2025-03-20 08:45)
DX: M48.062 Spinal stenosis, lumbar region with neurogenic claudication (principal); Z87.891 Personal history of nicotine dependence
CPT/HCPCS: 63047; 63048 ×2; 72020; 76000; J0131; J0690; J1100; J1171; J2405; J2704; J3010; J3490; J7030; J9999

== ENCOUNTER 2025-04-15 14:49 | Outpatient (CLI) | payer BC, SELFPAY ==
--- NOTE | 2025-04-15 15:15 | MR_ITS ---
WS: [id number] MRI CERVICAL SPINE NONCONTRAST TECHNIQUE: Sagittal T1, T2 and STIR imaging. Axial T2, gradient, and fiesta imaging. CLINICAL INFORMATION: back pain COMPARISON: None. FINDINGS: Straightening of the normal cervical lordosis. Slight retrolisthesis C5 on C6 and C6 on C7 with small central disc osteophyte protrusions.. C2-C3: Normal. C3-C4: Mild facet arthropathy. Spinal canal and foramen are patent. C4-C5: Mild facet arthropathy. Spinal canal and foramen are patent. C5-C6: Shallow central disc osteophyte protrusion with slight indentation of the cervical cord. Mild central canal stenosis. Moderate facet arthropathy. Mild bilateral foraminal narrowing. C6-C7: Shallow central disc osteophyte protrusion. Mild central canal stenosis. Mild to moderate LEFT foraminal narrowing. Mild facet arthropathy. C7-T1: Mild LEFT bony foraminal narrowing. Spinal canal and RIGHT foramen are patent. Visualized brain stem structures: Normal. Prevertebral soft tissues: Normal. MR/MR cervical spin wo con* [id number] IMPRESSION: 1. Straightening of the normal cervical lordosis. Cord signal is normal. 2. Shallow central disc osteophyte protrusions C5-C6 and C6-C7 with mild centr al canal stenosis. Slight retrolisthesis at these levels. 3. Mild to moderate LEFT C6-7 bony foraminal narrowing. 4. Mild bilateral C5-C6 and LEFT C7-T1 bony foraminal narrowing. 5. Moderate facet arthropathy worse at C5-6.
== END 2025-04-15 14:50 | disposition home or self-care (01) ==
LOC: RAD 14:49
PROVIDERS: PCP Family Medicine; Visit Provider Orthopaedic Surgery
DX: M48.02 Spinal stenosis, cervical region (principal); M43.12 Spondylolisthesis, cervical region; R29.3 Abnormal posture; M50.222 Other cervical disc displacement at C5-C6 level; M50.223 Other cervical disc displacement at C6-C7 level; M48.03 Spinal stenosis, cervicothoracic region; M47.812 Spondylosis without myelopathy or radiculopathy, cervical region
CPT/HCPCS: 72141

== ENCOUNTER → 2025-05-29 13:57 | Outpatient (BNVA) | payer BC, SELFPAY | PROVIDERS: PCP Family Medicine; Visit Provider Nurse Practitioner | DX: Z01.818 Encounter for other preprocedural examination (principal) | CPT/HCPCS: 80053; 81000; 85025 ==

== ENCOUNTER 2025-06-05 11:53 | Outpatient (CLI) | payer BC, SELFPAY ==
--- NOTE | 2025-06-05 12:15 | MR_ITS ---
WS: [id number] MRI LUMBAR SPINE NONCONTRAST HISTORY: Back pain, postop pain. Surgery March 2025. Bilateral leg pain, RIGHT greater than LEFT. COMPARISON: 07/31/2024 TECHNIQUE: Sagittal and axial multisequence imaging is submitted. Small cervical disc protrusions at C5-6 and C6-7. Straightening of the normal lumbar lordosis. 2 mm retrolisthesis of L3. Disc spaces and vertebral body heights are well-preserved. Conus terminates normally at L1-2 disc level. LEFT foraminal nerve root sleeve diverticulum at T12-L1. L1-L2: Normal. L2-L3: Mild annular disc bulging with slight narrowing of the subarticular recesses. Mild ligamentum flavum and facet arthritis. Minimal LEFT foraminal stenosis. L3-L4: Mild annular disc bulging. Far lateral LEFT annular fissure. Moderate ligamentum flavum and facet arthritis. Fluid in the facet joints. LEFT hemilaminectomy defect is new. There is mild impingement upon the subarticular recesses. No significant foraminal stenosis. L4-L5: Mild annular disc bulging with a central disc protrusion and annular fissure. Similar to the prior study. Moderate ligamentum flavum and facet arthritis. LEFT hemilaminectomy defect is new. Mild clumping of the nerve roots in the thecal sac. Mild central and subarticular recess stenosis similar to the prior study. No foraminal stenosis. L5-S1: Mild disc bulging effacing the ventral thecal sac. Very minimal encroachment upon the S1 nerve roots. New LEFT hemilaminectomy defect. Moderate facet arthritis. Postsurgical changes of edema in the posterior paraspinal soft tissues at L4 and L5 and extending into the lower sacrum. There is no well-circumscribed fluid collection. Greater edema within the LEFT paravertebral muscles. 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 MR/MR lumbar spine wo con* [id number] IMPRESSION: 1. New postsurgical LEFT hemilaminectomy defects are present at L3-4, L4-5 and L5-S1 since 07/31/2024. 2. LEFT paraspinal soft tissue edema. Postoperative changes but no well-circum scribed collection. 3. No new disc protrusions or stenosis identified. 4. Mild central and subarticular recess stenosis at L4-5 is unchanged. 5. Mild protrusion upon the subarticular recesses at L3-4. 6. Mild clumping of the nerve roots in the thecal sac from arachnoiditis is ne w.
== END 2025-06-05 11:54 | disposition home or self-care (01) ==
LOC: RAD 11:54
PROVIDERS: PCP Family Medicine; Visit Provider Orthopaedic Surgery
DX: M48.061 Spinal stenosis, lumbar region without neurogenic claudication (principal); M51.362 Other intervertebral disc degeneration, lumbar region with discogenic back pain and lower extremity pain; M51.A0 Intervertebral annulus fibrosus defect, lumbar region, unspecified size; M51.361 Other intervertebral disc degeneration, lumbar region with lower extremity pain only; M47.816 Spondylosis without myelopathy or radiculopathy, lumbar region; M51.27 Other intervertebral disc displacement, lumbosacral region; M47.817 Spondylosis without myelopathy or radiculopathy, lumbosacral region; M51.26 Other intervertebral disc displacement, lumbar region
CPT/HCPCS: 72148

== ENCOUNTER 2025-06-17 15:57 | Inpatient (IN) | payer BC, SELFPAY ==
[2025-06-17] VITALS (19 sets, daily range): BP systolic 126–151; BP diastolic 66–101; PULSE 66–105; RESP 10–84; TEMP 36.3–36.8; O2SAT 88–100; BMI 23.0
--- NOTE | 2025-06-17 06:27 | P.ANESASSM_ITS ---
Pre-Anesthetic Assessment Height/Weight: Height 5 ft 3 in Preop Diagnosis: Cervical stenosis with radiculopathy Operation Date: 06/17/25 07:00 Proposed Procedures p Anterior Cervical Discectomy & Fusion ACDF(Not Applicable) - Shilo Maravilla, DO Was Beta Genet taken within 24 hours: N/A Was Clonidine taken within 24 hours: N/A Social Tobacco and No alcohol Exam alert, oriented x 3, clear to auscultation bilaterally and regular rate & rhythm Airway Submandibular: within normal limits Cervical ROM: within normal limits Mallampati: Class II Dentition: full Anesthetic Plan ASA status: 2 Anesthesia: General Other: No prior issues with anesthesia NPO since yesterday evening Current smoker Denies any cardiac issues Adrenal mass that they are just monitoring Labs reviewed from 05/29/2025 and acceptable for procedure today Patient states that she is able to ambulate okay but is limited secondary to back pain. Denies any chest pain or shortness of breath Plan for GETA Medications/Allergies Home Medications ?Medication ?Instructions ?Recorded ?Confirmed ?Last Taken ?Type nicotine 14 mg/24 hr daily 1 patch transdermal DAILY n icotine 02/17/25 06/11/25 06/06/25 Rx transdermal patch supplement #7 ea Lumbar corset #1 ea 05/14/25 06/11/25 Unkn own Rx Lumbarosacral Support #1 ea 05/30/25 06/11/25 Unkn own Rx alprazolam 0.25 mg tablet 0.25 mg PO QPM anxiety 06/0606/11/25 06/05/25 History duloxetine 40 mg capsule,delayed 40 mg PO QPM mood/princess n 06/06/25 06/11/25 06/06/25 History release hydrocodone 7.5 mg-acetaminophen 1 tab PO TID PRN pain 30 days #90 06/07/25 06/11/25 Unknown Rx 325 mg tablet tabs Allergies Allergy/AdvReac Type Severity Reaction Status Date / Time No Known Allergies Allergy Verified 06/17/25 06:28 [facility] Anesthesia Medical History Acute right-sided low back pain with right-sided sciatica Headache after cough Tick bite of elbow Social History Smoking and tobacco/nicotine status: former use of tobacco/nicotine (wears nicotine patches ) Second hand smoke exposure: No Alcohol intake: never Substance/Drug Use: never Lives independently: Yes
--- NOTE | 2025-06-17 06:28 | W.PM.OPSUD ---
Surgery/Procedure H&P Update DATE OF PROCEDURE: June 17, 2025 DATE H&P PERFORMED: 06/11/25 H&P UPDATE INFORMATION: I have reviewed H&P completed within last 30 days, I have examined patient prior to procedure and No changes to prior documentation PREOP DIAGNOSIS: Cervical stenosis with radiculopathy PLANNED PROCEDURE: Operation Date: 06/17/25 07:00 Proposed Procedures p Anterior Cervical Discectomy & Fusion ACDF(Not Applicable) - Shilo Maravilla DO
[2025-06-17] MEDS: ceFAZolin 2,000 mg SDV 2000 MG IVP ×3 (13:07→22:20)
[2025-06-17] MEDS: lidocaine-epi 1% 20 mL INJ 10 ML INJECTION (14:14)
--- NOTE | 2025-06-17 15:08 | PM.OP ---
Operative Report Date of procedure: June 17, 2025 Pre-op diagnosis: Cervical stenosis with radiculopathy Post-op diagnosis: same Procedure done: 1. Anterior discectomy C4/5 2. Anterior diskectomy C5/6 3. Anterior discectomy C6/7 4. Insertion of cage at C4/5 5. Insertion of cage C5/6 6. Insertion of Cage C6/7 7. Instrumentation with anterior plate from C4-C7 8. Use of allograft Surgeon: Shilo Maravilla DO Procedure: 1. Anterior discectomy C4/5 2. Anterior diskectomy C5/6 3. Anterior discectomy C6/7 4. Insertion of cage at C4/5 5. Insertion of cage C5/6 6. Insertion of Cage C6/7 7. Instrumentation with anterior plate from C4-C7 8. Use of allograft The patient was taken to the operating room, where he underwent general endotracheal anesthesia without complications. He was then positioned supine on the operating table, and all areas of impingement were well padded. The arms were carefully padded and tucked at his sides. A roll was placed between the shoulder blades.. An x-ray was done to determine the appropriate level for the skin incision. The entire neck was then sterilely prepped and draped in the usual fashion. Neuromonitoring was attached prior to prepping. A transverse skin incision was made and carried down to the platysma muscle. This was then split in line with its fibers. Blunt dissection was carried down medial to the carotid sheath and lateral to the trachea and esophagus until the anterior cervical spine was visualized. A needle was placed into a disc and an x-ray was done to determine its location. The longus colli muscles were then elevated bilaterally with the electrocautery unit. Self-retaining retractors were placed deep to the longus colli muscle. Attention was brought to the C4/5 level that was confirmed on x-ray. A caspar pin was placed into the C4 vertebrae and the C5 vertebrae. The disk space was then distracted. The microscope was then brought in. A radical anterior discectomies were performed at C4/5. This included complete removal of the anterior annulus, nucleus, and posterior annulus. The posterior longitudinal ligament was removed as were the posterior osteophytes. Foraminotomies were then accomplished bilaterally. This was done using a high speed ramana, kerrison rongeurs and curretes Once all of this was accomplished, the curved currette was used to check for any residual compression. The central canal was wide open as were the foramen. A high-speed bur was used to remove the cartilaginous endplates above and below the interspace. Bleeding cancellous bone was exposed. The disc space were measured and appropriate size cage were placed sterilely onto the field. Allograft graft was packed into the cages. The cage was then placed and there was good juxtaposition against the bleeding decorticated surfaces and good distraction of each interspace. Attention was brought to the next interspace. {copy description of discectomy to cage placement} The [place] pins were removed. Bone wax was used to prevent any bleeding from occurring at the pin sites. Attention was brought to the C5/6 level that was confirmed on x-ray. A caspar pin was placed into the C5 vertebrae and the C6 vertebrae. The disk space was then distracted. The microscope was then brought in. A radical anterior discectomies were performed at C5/6. This included complete removal of the anterior annulus, nucleus, and posterior annulus. The posterior longitudinal ligament was removed as were the posterior osteophytes. Foraminotomies were then accomplished bilaterally. This was done using a high speed ramana, kerrison rongeurs and curretes Once all of this was accomplished, the curved currette was used to check for any residual compression. The central canal was wide open as were the foramen. A high-speed bur was used to remove the cartilaginous endplates above and below the interspace. Bleeding cancellous bone was exposed. The disc space were measured and appropriate size cage were placed sterilely onto the field. Allograft graft was packed into the cages. The cage was then placed and there was good juxtaposition against the bleeding decorticated surfaces and good distraction of each interspace. Attention was brought to the next interspace. The Hollywood pins were removed. Bone wax was used to prevent any bleeding from occurring at the pin sites. Attention was brought to the C6/7 level that was confirmed on x-ray. A caspar pin was placed into the C6 vertebrae and the C7 vertebrae. The disk space was then distracted. The microscope was then brought in. A radical anterior discectomies were performed at C6/7. This included complete removal of the anterior annulus, nucleus, and posterior annulus. The posterior longitudinal ligament was removed as were the posterior osteophytes. Foraminotomies were then accomplished bilaterally. This was done using a high speed ramana, kerrison rongeurs and curretes Once all of this was accomplished, the curved currette was used to check for any residual compression. The central canal was wide open as were the foramen. A high-speed bur was used to remove the cartilaginous endplates above and below the interspace. Bleeding cancellous bone was exposed. The disc space were measured and appropriate size cage were placed sterilely onto the field. Allograft graft was packed into the cages. The cage was then placed and there was good juxtaposition against the bleeding decorticated surfaces and good distraction of each interspace. Attention was brought to the next interspace. The Hollywood pins were removed. Bone wax was used to prevent any bleeding from occurring at the pin sites. The appropriate size anterior cervical locking plate was chosen and bent into gentle lordosis. Two screws were then placed into each of the vertebral bodies at C4, C5, C6 and C7. There was excellent purchase. A final x-ray was done confirming good position of the hardware and Cages. The locking screws were then applied, also with excellent purchase. Following a final copious irrigation, there was good hemostasis and no dural leaks. The carotid pulse was strong. The wounds were then closed in layers using 2-0 Vicryl suture for the platysma muscle, 2-0 Vicryl suture for the subcutaneous tissue, and 4-0 monocryl suture in a subcuticular skin closure. Glue was placed followed by application of a sterile dressing. The drain was hooked to bulb suction. A soft collar was applied. The patient was then carefully returned to the supine position on his hospital bed where he was reversed and extubated and taken to the recovery room having tolerated the procedure well.
--- NOTE | 2025-06-17 15:55 | PC.NURSE ---
1535 - Patient taken to Room 269 via bed. VS taken - Temp - 97.5, HR 73, RR 18, 96% on 2L NC. CLWR.
--- NOTE | 2025-06-17 16:13 | XR_ITS ---
WS: [id number] XR cervical spine 3V* [id number] REASON FOR EXAM: or pic FINDINGS: Anterior plate and screw fixation with interbody fusion devices C4-C7. The surgical appliances are intact and in proper position and alignment. XR/XR cervical spine 3V* [id number] IMPRESSION: Anterior cervical fusion without abnormality.
[2025-06-17] MEDS: HYDROcodone-acetaminophen 10-325 mg Tablet PO ×2 (16:56→20:55)
--- NOTE | 2025-06-17 23:55 | PC.NURSE ---
PT CO NECK PAIN- ADJUSTed neck brace. pain med effective.
[2025-06-18] VITALS: BP 124/74; PULSE 74; RESP 18; TEMP 36.6; O2SAT 93
[2025-06-18 00:49] VITALS: RESP 16; O2SAT 93
[2025-06-18] MEDS: morphine 4 mg/mL SDV 1 mL 2 MG IVP (00:49)
[2025-06-18 04:52] VITALS: BP 124/67; PULSE 71; RESP 18; TEMP 36.5; O2SAT 94
[2025-06-18 06:00] VITALS: BMI 23.0
[2025-06-18] MEDS: HYDROcodone-acetaminophen 10-325 mg Tablet PO ×2 (06:16→10:18)
[2025-06-18 07:48] VITALS: BP 146/75; PULSE 81; RESP 17; TEMP 36.4; O2SAT 93
--- NOTE | 2025-06-18 08:29 | P.DS_ITS ---
Discharge Providers Date of Admission: 06/17/25 15:57 Date of Discharge: June 18, 2025 Attending Provider at Admission: Shilo Maravilla DO Attending Provider at Discharge: Shilo Maravilla DO Primary Care Provider: Severino Rosales DO Reason for Visit Reason for Visit: M48.02 Physical Exam Narrative: Doing well no complaints Discharge Data Studies Completed and Pending Completed Studies During Hospitalization Category Date Time Status XR cervical spine 3V* [id number] Routine Exams 06/17/25 16:13 Completed Radiology Impressions Cervical Spine X-Ray 06/17/25 16:13 IMPRESSION: Anterior cervical fusion without abnormality. Vitals Last Vital Signs Temp 97.5 F L 06/18/25 07:48 Pulse 81 06/18/25 07:48 Resp 17 06/18/25 07:48 BP 146/75 06/18/25 07:48 Pulse Ox 93 06/18/25 07:48 O2 Del Method Room Air 06/18/25 07:48 O2 Flow Rate 2 06/17/25 15:33 Discharge Plan Discharge Patient Disposition: Home Condition: Stable Prescriptions: New hydrocodone-acetaminophen 10-325 mg tablet 1 tab PO Q4H PRN (Reason: pain) 7 Days Qty: 42 0RF Continued (DME) Lumbarosacral Support See Rx Instructions .Route .MEDSUPPLY Qty: 1 0RF Rx Instructions: As directed (DME) Lumbar corset See Rx Instructions .Route .MEDSUPPLY Qty: 1 0RF Rx Instructions: As directed nicotine 14 mg/24 hr patch 24 hour 1 patch transdermal DAILY Qty: 7 0RF duloxetine 40 mg capsule,delayed release(DR/EC) 40 mg PO QPM Discontinued hydrocodone-acetaminophen 7.5-325 mg tablet 1 tab PO TID PRN (Reason: pain) 30 Days Qty: 90 0RF alprazolam 0.25 mg tablet 0.25 mg PO QPM Discharge Order = DC NOW: Discharge Order (Routine); Ordered 06/18/25 Ordered By: Shilo Maravilla Referrals: Shilo Maravilla DO [Physician, Orthopedics] Discharge Diet: Advance as tolerated Discharge Activity: Limit activity as instructed Patient Instructions: Hydrocodone/Acetaminophen (By mouth) (Vicodin, [place]), Hydrocodone/Acetaminophen (By mouth), Acute Wound Care (DC), Anterior Cervical Discectomy (DC), Anterior Cervical Discectomy (GEN), Opioid Safety, Post Anesthesia Care, Patient Portal & Raisa Instructions Activity Restrictions/Additional Instructions: Okay to start alprazolam when you get home Thank you for choosing [facility] for your care! The following is a list of instructions, from your provider, to follow upon your discharge to ensure you have the optimal recovery from your recent injury or surgery. Anterior Cervical Discectomy and Fusion: What to Expect at Home Your Recovery Follow-up care is a gavin part of your treatment and safety. Be sure to make and go to all appointments, and call your doctor if you are having problems. If you do not already have a follow-up appointment made, call office in the next 1-3 days to make follow up appointment for 2 weeks at [phone]. It is also a good idea to know your test results and keep a list of the medicines you take. You can expect your neck to feel stiff or sore after surgery. This should improve in the weeks after surgery. But it may take 4 to 6 months for you to get better completely. You may have trouble sitting or standing in one position for very long and may need pain medicine in the weeks after your surgery. It may take 4 to 6 weeks to get back to your usual activities, but it may depend on what kind of surgery you had. Your throat will feel sore and it may be difficult to swallow for the first 3 days after your surgery. As long as you can get liquids down without difficulty, this should slowly improve, otherwise call our office or seek medical attention if it becomes increasingly difficult to get anything down including liquids. Avoid hot liquids for first 3-5 days. Soothing foods/liquids such as jello, pudding, and luke warm soups are recommended until swallowing improves. Staying elevated will also help, it's advised you keep propped up at while sleeping to help reduce the swelling. You may use an ice pack directly on your incision or around it on the front of your neck, using a cloth to protect your skin; and a heating pad to the back of your neck as needed. Do not use over the counter anti-inflammatory medications (Ibuprofen, Motrin, Aleve, Advil, etc) Taking these meds after having a fusion can delay fusion rates, we recommend you avoid them for the first 3 months after your surgery[address] Dr. Maravilla may advise you to work with a physical therapist to strengthen the muscles around your neck and back - this will be discussed at your follow - up appointments. The pain or numbness you were having in your arms before surgery should get better or go away completely. This care sheet gives you a general idea about how long it will take for you to recover. But each person recovers at a different pace. Follow the steps below to get better as quickly as possible. How can you care for yourself at home? Activity ? Rest when you feel tired. Getting enough sleep will help you recover. ? Try to walk each day. Start by walking a little more than you did the day before. Bit by bit, increase the amount you walk. Walking boosts blood flow and helps prevent pneumonia and constipation. Walking may also decrease your muscle soreness after surgery. ? No lifting anything that is more that 5 pounds. This may include hea vy grocery bags and milk containers, a heavy briefcase or backpack, cat litter or dog food bags, a child, or a vacuum equipment or machinery cleaner. ? Avoid strenuous activities, such as bicycle riding, jogging, sierra ghtlifting, or aerobic exercise, until your doctor says it is okay. ? Do not drive until your follow-up visit after your surgery, or until your doctor says it isokay. ? Avoid taking long car trips for 2 to 4 weeks after surgery. Your neck may become tired and painful from sitting too long in one position. ? You will probably need to take 4 to 6 weeks off from work. It depends on the type of work you do and how you feel. ? You may have sex as soon as you feel able, but avoid positions that put stress on your neck or cause pain. Diet ? You can eat your normal diet. If your stomach is upset, try bland, low-fat foods like plain rice, broiled chicken, toast, and yogurt ? Drink plenty of fluids. If you have kidney, heart, or liver disease and have to limit fluids, talk with your doctor before you increase the amount of fluids you drink. ? You may notice that your bowel movements are not regular right after your surgery. This is common. Try to avoid constipation and straining with bowel movements. You may want to take a fiber supplement every day. If you have not had a bowel movement after a couple of days, ask your doctor about taking a mild laxative. Medicines ? Take pain medicines exactly as directed. 1. If Dr. Maravilla gave you a prescription medicine for pain, take lt as prescribed. 2. Do not take two or more pain medicines at the same time unless the doctor told you to. Many pain medicines have acetaminophen, which is Tylenol. Too much acetaminophen {Tylenol) can be harmful. 3. If you think your pain pill is making you sick to your stomach: 4. Take your pills after meals (unless your doctor has told you not to). 5. Ask your Dr. for a different pain pill. Incisioncare ? Remove your dressing 48hours after your surgery. Ok to shower and get the incision wet. Do not overtly wash your incision. When done, pad dry, leave open to air thereafter. Avoid creams and ointments directly on your incision. ? Your sutures in the incision will dissolve and fall out on their own. ? Keep the area clean and dry. You may cover it with a gauze bandage if it weeps or rubs against clothing; if you choose to do this, change the dressing everyday. Other instructions ? Use a heating pad, hot water bottle, or gentle massage on your back to reduce stiffness. Avoid putting heat on your incision When should you call for help? ? Call 911 anytime you think you may need emergency care. For example, call if: ? You pass out (lose consciousness). ? You have sudden chest pain and shortness of breath, or you cough upblood. ? You cannot swallow. ? You have severe pain in your neck or back. ? Call your Dr. or seek immediate medical care if: ? You have pain that does not get better after you take pain pills. ? You have loose stitches, or your incision comes open. ? You have blood or fluid draining from the incision. ? You have signs of infection, such as: 1. Increased pain, swelling, warmth, or redness. 2. Red streaks leading from the site. 3. Pus draining from the site. 4. Swollen lymph nodes in your neck or armpits. 5. A fever. ? You have severe pain in your arms. ? You have new or increased weakness or numbness in your arms. ? Watch closely for any changes in your health, and be sure to contact your doctor if: ? You do not have a bowel movement after taking a laxative. Discharge Attestations Time Spent in Discharge Care*: less than 30 min Quality Metrics Clinical Quality Measures [ No reported AMI, CVA or VTE this stay] Coding Level of Care Code Acute Code for Chg Fwd
--- NOTE | 2025-06-18 10:19 | PC.CHAP ---
Pastoral Care Encounter/Spiritual Assessment Type of Contact [] Declined pigment pusher visit [] Patient/Family/Request visit [] Outpatient visit [] Follow-up visit [] Physician referral [] Code/Alert [x] Routine visit [] Staff referral [] Actively dying [] Patient sleeping [x] Family support [] [] Out of room [] Palliative care [] [] Receiving care in room [] Pre-surgical visit [] Trauma [] Long length of stay [] ICU visit [] Other: Relational/Emotional Strength [x] Patient feels connected with others/family/visitors/staff [] Distress [] Loneliness/isolation [] Abandonment Spirituality of Patient [x] Person of Rebecca [] Attends Adventism of their Rebecca [x] Believes in Prayer [] Reads Bible or Shinto materials [] There are Spiritual issues to be addressed Inorganic Chemistry Teacher Interventions [x] Prayer [x] Active listening [] Non-anxious presence [x] Spiritual/emotional support [] Crisis/trauma care [] Spiritual counseling [] Bereavement support [] Provided bereavement packet [] Provided Bible/devotional materials [] Provided toy/stuffed animal, coloring book to patient or family member [] Provided Communion [] Anointing/[place] [] Salvation [x] Completed spiritual assessment [] Other: Impact on Illness or Injury [] Angry [] Fearful [] Anxious [] Often cries [] Exhaustion [] Unable to work [] Unable to attend gnosticist [] Unable to walk/stand [] Unable to read [] Unable to drive [] Unable to eat/drink [] Unable to sleep [] Unable to be with family [] Patient intubated [] Other: Summary Time spent with patient 5 min
== END 2025-06-18 10:41 | disposition home or self-care (01) | DRG 473 ==
LOC: MEDSURG 16:34
PROVIDERS: Admitting Provider Orthopaedic Surgery; PCP Family Medicine; Visit Provider Orthopaedic Surgery
PROC: 0RG20A0 Fusion of 2 or more Cervical Vertebral Joints with Interbody Fusion Device, Anterior Approach, Anterior Column, Open Approach (ICD-10-PCS; principal; 2025-06-17 07:00)
PROC: 0RB30ZZ Excision of Cervical Vertebral Disc, Open Approach (ICD-10-PCS; CPT 22551; principal; 2025-06-17 11:00)
DX: M48.02 Spinal stenosis, cervical region (principal); M54.12 Radiculopathy, cervical region; Z79.899 Other long term (current) drug therapy
CPT/HCPCS: 36415; 72040; 76000; 97110; 97161; A4649; C1713; C1763; C9359; J0690; J1100; J1171; J1885; J2250; J2270; J2371; J2405; J2704; J3010; J3475; J3490; J7030; J7120; J9999

== ENCOUNTER → 2025-07-18 08:48 | Outpatient (BNVA) | payer BC, SELFPAY | PROVIDERS: PCP Family Medicine; Visit Provider Orthopaedic Surgery | DX: Z98.890 Other specified postprocedural states (principal); Z98.1 Arthrodesis status | CPT/HCPCS: 72040 ==